=== PATIENT | female | born 1985 | race Caucasian/White ===

== ENCOUNTER 2018-03-30 12:11 | Inpatient (IN) | payer MEDICAID ==
[~2018-03-30 12:11] MED LIST: OXYTOCIN 10 UNIT INJ
[2018-03-30 12:51] LABS: ADD MAN DIFF? NO
[2018-03-30 12:56] LABS: BASOPHILS % 0.1 % (0.0-2.0); EOSINOPHILS # 0.1 10^3/ul (0.0-0.5); EOSINOPHILS % 1.1 % (0.0-7.0); HEMATOCRIT 37.6 % (37.0-47.0); HEMOGLOBIN 12.5 g/dl (12.0-16.0); LYMPHOCYTES % 26.9 % (15.0-51.0); MEAN CORPUSCULAR HEMOGLOBIN 29.2 pg (29.0-33.0); MEAN CORPUSCULAR HGB CONC 33.2 g/dl (32.0-37.0); MEAN CORPUSCULAR VOLUME 87.9 fl (82.0-101.0); MEAN PLATELET VOLUME 11.6 fl (7.4-10.4); MONOCYTE # 0.4 10^3/ul (0.3-0.9); MONOCYTES % 5.2 % (0.0-11.0); NEUTROPHILS % 66.3 % (39.0-77.0); PLATELET COUNT 214 10^3/UL (140-415); RED BLOOD COUNT 4.28 10^6/ul (4.20-5.40); RED CELL DISTRIBUTION WIDTH 13.7 % (11.5-14.5)
[2018-03-30 12:56] LABS: WHITE BLOOD COUNT 7.6 10^3/ul (4.8-10.8)
[2018-03-30 13:15] LABS: INR 0.87; PROTIME 11.9 Sec (11.9-14.9); PT RATIO 0.9
[2018-03-30 13:16] LABS: ADD UMIC NO; PARTIAL THROMBOPLASTIN TIME 27.8 Sec (25.0-35.0); UR ASCORBIC ACID NEGATIVE (NEGATIVE); UR BILIRUBIN (Dip) NEGATIVE (NEGATIVE); UR BLOOD (Dip) NEGATIVE (NEGATIVE); UR CLARITY CLEAR (CLEAR); UR COLOR STRAW (YELLOW); UR GLUCOSE (Dip) NEGATIVE (NEGATIVE); UR KETONES (Dip) TRACE mg/dL (NEGATIVE); UR LEUKOCYTE ESTERASE (Dip) NEGATIVE Leu/ul (NEGATIVE); UR NITRITE (Dip) NEGATIVE (NEGATIVE); UR SPECIFIC GRAVITY (Dip) 1.004 (1.003-1.030); UR TOTAL PROTEIN (Dip) NEGATIVE (NEGATIVE); UR UROBILINOGEN (Dip) NEGATIVE (NEGATIVE)
[2018-03-30 13:22] LABS: ALANINE AMINOTRANSFERASE 36 IU/L (13-69); ALBUMIN 3.4 g/dl (3.3-4.9); ALBUMIN/GLOBULIN RATIO 1.03; ALKALINE PHOSPHATASE 138 IU/L (42-121); ANION GAP 14 (8-16); ASPARTATE AMINO TRANSFERASE 24 IU/L (15-46); BILIRUBIN,INDIRECT 0.4 mg/dl (0-1.1); BILIRUBIN,TOTAL 0.4 mg/dl (0.2-1.3); BLOOD UREA NITROGEN 9 mg/dl (7-20); CALCIUM 9.3 mg/dl (8.4-10.2); CARBON DIOXIDE 19 mmol/L (21-31); CHLORIDE 109 mmol/L (97-110); CREATININE 0.42 mg/dl (0.44-1.00); GLUCOSE 72 mg/dl (70-220); POTASSIUM 3.8 mmol/L (3.5-5.1); SODIUM 138 mmol/L (135-144); TOTAL PROTEIN 6.7 g/dl (6.1-8.1); URIC ACID 4.7 mg/dl (3.1-7.9)
[2018-03-30] MEDS ORDERED: MISOPROSTOL 200 MCG TAB PR ×2 (14:30→20:00)
[2018-03-30] MEDS ORDERED: OXYTOCIN 30 UNITS/LR 500 ML IV ×3 (14:30→20:00)
[2018-03-30] MEDS ORDERED: METHYLERGONOVINE 0.2 MG INJ IM ×2 (14:30→20:00)
[2018-03-30] MEDS ORDERED: CARBOPROST 250 MCG INJ IM ×2 (14:30→20:00)
[2018-03-30] MEDS: LACTATED RINGER'S 1,000 ML IV ×2 (14:38→19:44)
[2018-03-30] MEDS: MAGNESIUM SULFATE 4 GM/100 ML 100 ML IV (14:42)
[2018-03-30] MEDS: MAGNESIUM SULFATE 20 GM/500 ML 500 ML IV ×2 (15:11→20:32)
[2018-03-30] MEDS ORDERED: EPHEDrine SULFATE 50 MG/5 ML SYG (17:39)
[2018-03-30] MEDS ORDERED: morphine SULFATE/PF (10 MG/10 ML) INJ (17:40)
[2018-03-30] MEDS ORDERED: OXYTOCIN 10 UNIT INJ (17:40)
[2018-03-30] MEDS ORDERED: ONDANSETRON 4 MG INJ (17:40)
[2018-03-30] MEDS ORDERED: METOCLOPRAMIDE 10 MG INJ (17:40)
[2018-03-30] MEDS ORDERED: BUPIVACAINE 0.75%/DEXT (SPINAL) 2 ML INJ (17:40)
[2018-03-30] MEDS ORDERED: ATROPINE 1 MG/10 ML SYRINGE (18:21)
[2018-03-30] MEDS: OXYTOCIN 30 UNITS/LR 500 ML IV ×2 (18:51→20:31)
[2018-03-30] MEDS: CEFAZOLIN 2 GM/50 ML (PMX) 50 ML IVPB (18:54)
[2018-03-30] MEDS ORDERED: DIPHENHYDRAMINE 50 MG INJ IV (19:30)
[2018-03-30] MEDS ORDERED: ONDANSETRON 4 MG INJ IV (19:30)
[2018-03-30] MEDS ORDERED: EPHEDrine SULFATE 50 MG/5 ML SYG IV (19:30)
[2018-03-30] MEDS ORDERED: morphine 2 MG INJ IV ×2 (19:30)
[2018-03-30] MEDS ORDERED: NALOXONE (0.4 MG/ML) INJ IV (19:30)
[2018-03-30] MEDS: morphine SULFATE/PF (10 MG/10 ML) INJ SPINAL (19:38)
[2018-03-30 19:41] LABS: RAPID PLASMA REAGIN NONREACTIVE (NR)
[2018-03-30] MEDS ORDERED: NA PHOSPHATE/BIPHOS 133 ML ENEMA PR (20:00)
[2018-03-30] MEDS ORDERED: NACL 0.9% 3 ML SYG IV (20:00)
[2018-03-30 20:21] LABS: HEPATITIS B SURFACE ANTIGEN NEGATIVE (NEGATIVE)
[2018-03-30] MEDS: IBUPROFEN 800 MG TAB PO (22:00)
[2018-03-31 01:16] LABS: MAGNESIUM 4.1 mg/dl (1.7-2.5)
[2018-03-31] MEDS: LACTATED RINGER'S 1,000 ML IV ×2 (03:12→12:22)
[2018-03-31] MEDS: MAGNESIUM SULFATE 20 GM/500 ML 500 ML IV ×2 (03:26→13:47)
[2018-03-31] MEDS: KETOROLAC 30 MG INJ IV ×3 (04:58→17:27)
[2018-03-31] MEDS: IBUPROFEN 800 MG TAB PO ×3 (05:29→21:40)
[2018-03-31 08:28] LABS: ADD MAN DIFF? NO
[2018-03-31 08:36] LABS: WHITE BLOOD COUNT 8.7 10^3/ul (4.8-10.8)
[2018-03-31 08:36] LABS: BASOPHILS % 0.2 % (0.0-2.0); EOSINOPHILS % 0.3 % (0.0-7.0); HEMATOCRIT 33.9 % (37.0-47.0); HEMOGLOBIN 11.3 g/dl (12.0-16.0); LYMPHOCYTES # 1.4 10^3/ul (0.8-2.9); LYMPHOCYTES % 16.3 % (15.0-51.0); MEAN CORPUSCULAR HEMOGLOBIN 29.6 pg (29.0-33.0); MEAN CORPUSCULAR HGB CONC 33.3 g/dl (32.0-37.0); MEAN CORPUSCULAR VOLUME 88.7 fl (82.0-101.0); MEAN PLATELET VOLUME 11.7 fl (7.4-10.4); MONOCYTE # 0.5 10^3/ul (0.3-0.9); MONOCYTES % 6.2 % (0.0-11.0); NEUTROPHIL # 6.7 10^3/ul (1.6-7.5); NEUTROPHILS % 76.8 % (39.0-77.0); PLATELET COUNT 181 10^3/UL (140-415); RED BLOOD COUNT 3.82 10^6/ul (4.20-5.40); RED CELL DISTRIBUTION WIDTH 13.9 % (11.5-14.5)
[2018-03-31 09:03] LABS: MAGNESIUM 4.7 mg/dl (1.7-2.5)
[2018-03-31] MEDS: LANOLIN 7 GM TUBE TOP (12:22)
[2018-03-31 12:41] LABS: MAGNESIUM 4.7 mg/dl (1.7-2.5)
[2018-03-31 18:12] LABS: MAGNESIUM 4.7 mg/dl (1.7-2.5)
[2018-03-31] MEDS: HYDROCODONE/APAP (5/325) TAB PO ×3 (18:38→22:44)
[2018-04-01] MEDS: HYDROCODONE/APAP (5/325) TAB PO ×4 (03:38→20:36)
[2018-04-01] MEDS: IBUPROFEN 800 MG TAB PO ×3 (05:36→22:33)
[2018-04-02] MEDS: HYDROCODONE/APAP (5/325) TAB PO ×2 (05:02→11:31)
[2018-04-02] MEDS: IBUPROFEN 800 MG TAB PO ×2 (06:16→15:10)
[2018-04-02] MEDS: MEASLES,MUMPS,RUBELLA VACCINE INJ SC* (09:44)
[2018-04-02] MEDS: DIPHTH/TET/ACEL PERTUSS (ADULT) 0.5 ML VIAL IM* (09:44)
== END 2018-04-02 18:01 | disposition home or self-care (01) | DRG 766 ==
LOC: OBT 12:11 → L-D 12:12 → OBT 13:24 → L-D 13:24 → PP1 21:24
PROVIDERS: Obstetrics & Gynecology
PROC: 10D00Z1 Extraction of Products of Conception, Low, Open Approach (ICD-10-PCS; principal; 2018-03-30 18:00)
PROC: 0UB70ZZ Excision of Bilateral Fallopian Tubes, Open Approach (ICD-10-PCS; 2018-03-30 18:00)
DX: O13.4 Gestational [pregnancy-induced] hypertension without significant proteinuria, complicating childbirth (principal); O34.219 Maternal care for unspecified type scar from previous cesarean delivery; O99.89 Other specified diseases and conditions complicating pregnancy, childbirth and the puerperium; N73.6 Female pelvic peritoneal adhesions (postinfective); Z3A.37 37 weeks gestation of pregnancy; Z37.0 Single live birth; Z30.2 Encounter for sterilization
CPT/HCPCS: 76818; 80053; 81003; 83735; 84560; 85025; 85384; 85610; 85730; 86592; 86850; 86900; 86901; 87340; 88302; 88307